=== PATIENT | female | born 1990 | race Caucasian/White ===

== ENCOUNTER 2018-07-25 14:39 | Inpatient (IN) | payer OTHER ==
[2018-07-25] MEDS ORDERED: OXYTOCIN 30 UNITS IN 0.9% NaCl 500ML IV BAG (J2590) As Ordered (14:44)
[2018-07-25] MEDS ORDERED: ACETAMINOPHEN 500 MG TAB PO (15:15)
[2018-07-25] MEDS ORDERED: DOCUSATE SODIUM 100 MG CAP PO (15:15)
[2018-07-25] MEDS ORDERED: MEASLES,MUMPS,RUBELLA VACCINE INJ (MMR-II) (90707) SC (15:15)
[2018-07-25] MEDS ORDERED: RHOGAM 300 MCG (1500 IU) INJ (J2790) IM (15:15)
[2018-07-25] MEDS ORDERED: OXYTOCIN INJ 10 UNITS/ML VIAL (J2590) As Ordered (15:59)
[2018-07-25] MEDS ORDERED: LIDOCAINE 1% MDV 20ML VIAL As Ordered (16:00)
[2018-07-25] MEDS: OXYTOCIN INJ 10 UNITS/ML VIAL (J2590) IM (16:23)
[2018-07-25] MEDS: LIDOCAINE 1% MDV 20ML VIAL SC (16:23)
[2018-07-25] MEDS: PRENATAL VITAMINS CHEWABLE TABLET PO (18:00)
[2018-07-25] MEDS: IBUPROFEN 800 MG TAB PO (18:01)
[2018-07-25] MEDS: DIBUCAINE 1% OINTMENT 30GM TOP (18:02)
[2018-07-26] MEDS: IBUPROFEN 800 MG TAB PO (04:07)
[2018-07-26] MEDS: PRENATAL VITAMINS CHEWABLE TABLET PO (09:21)
== END 2018-07-26 17:50 | disposition home or self-care (01) | DRG 776 ==
LOC: M LDI 14:39 → M OBS 17:55
PROC: 0HQ9XZZ Repair Perineum Skin, External Approach (ICD-10-PCS; principal; 2018-07-25)
DX: Z39.0 Encounter for care and examination of mother immediately after delivery (principal); O70.0 First degree perineal laceration during delivery; Z3A.40 40 weeks gestation of pregnancy

== ENCOUNTER 2020-03-31 14:27 | Inpatient (IN) | payer OTHER ==
[~2020-03-31] VITALS: Ht 165.1 cm; Wt 76.9 kg
[2020-03-31] VITALS (19 sets, daily range): BP systolic 97–134; BP diastolic 51–80
[~2020-03-31 14:27] MED LIST: IBUP-1114 PO; MAPA500T2 PO; NUPE1OIN2 TOP; PRENTAB9 PO
[2020-03-31] MEDS ORDERED: LACTATED RINGER'S 1000 ML IV STA (14:57)
[2020-03-31] MEDS ORDERED: OXYTOCIN DRIP 30 UNITS in IV 1 EA IV SCH (15:00)
[2020-03-31 15:28] LABS: BASO % 0.3 % (0.0-1.0); EOS % 0.3 % (0.0-3.0); HEMOGLOBIN 13.3 g/dl (12.0-15.5); LYMPH % 20.2 % (24.0-44.0); MEAN CORPUSCULAR HEMOGLOBIN 33.9 pg (27.0-33.0); MEAN CORPUSCULAR HGB CONC 35.9 g/dl (32.0-36.5); MEAN CORPUSCULAR VOLUME 94.4 fl (80.0-96.0); MONO # 0.7 10^3/uL (0.0-0.8); MONO % 7.4 % (0.0-5.0); NEUTROPHILS % 70.9 % (36.0-66.0); PLATELET COUNT, AUTOMATED 192 10^3/uL (150-450); RED BLOOD COUNT 3.92 10^6/uL (4.00-5.40); WHITE BLOOD COUNT 9.9 10^3/uL (4.0-10.0)
[2020-03-31] MEDS: LR 1,000 ML IV SCH (16:29)
[2020-04-01] VITALS (16 sets, daily range): BP systolic 108–145; BP diastolic 54–93
[2020-04-01] MEDS ORDERED: FENTANYL 2MCG/ML ROPIVACAINE 0.2% IN 0.9% NACL 100ML IVBAG As Ordered ONE (00:18)
--- NOTE | 2020-04-01 00:57 | IPNPDOC ---
Text Note Date of Service The patient was seen on 04/01/20. NOTE Patient is a 29 y/o G 4P021 at 41wks admitted last night for IOL for pending postdates. induction with pitocin with cervix at 4cm. just received epidural pit: 12mU/min vitals: normal NAD fht: 130/mod anna/pos accel/ no decel toco: ctx q 2-3mins a/p patient in latent labor. will assess bout 1-2 hr after epidural and AROM as indicated. Le, DO VS,Fishbone, I+O VS, Fishbone, I+O Laboratory Tests 03/31/20 15:15 Vital Signs Date Time Temp Pulse Resp B/P (MAP) Pulse Ox O2 Delivery O2 Flow Rate FiO2 03/31/20 23:44 80 117/68 (84) 03/31/20 19:16 96.7 18 I&O- Last 24 Hours up to 6 AM 04/01/20 05:59 Intake Total 776 ml Balance 776 ml LORENE WRIGHT DO Apr 01, 2020 00:57
[2020-04-01] MEDS ORDERED: LACTATED RINGER'S 1000 ML IV PRN (01:00)
[2020-04-01] MEDS ORDERED: REFRIGERATOR IV KEYS XX PRN (01:00)
[2020-04-01] MEDS ORDERED: NALOXONE INJ 0.4MG/1ML VIAL (J2310 PER 1MG) IV PRN (01:00)
[2020-04-01] MEDS ORDERED: diphenhydrAMINE 50MG/ML VIAL (J1200) IV PRN (01:00)
[2020-04-01] MEDS ORDERED: EPIDURAL COMMENT XX SCH (01:00)
[2020-04-01] MEDS ORDERED: ePHEDrine SULFATE 25 MG/5 ML(5MG/ML) SYRINGE IV PRN (01:00)
[2020-04-01] MEDS ORDERED: ONDANSETRON 4MG/2ML VIAL IV PRN (01:00)
[2020-04-01] MEDS ORDERED: EPIDURAL/PCA KEYS XX PRN (01:00)
[2020-04-01] MEDS ORDERED: FENTANYL/ROPIVACAINE/NACL BAG 100 ML EPIDURAL SCH (01:00)
[2020-04-01] MEDS: LR 1,000 ML IV SCH (02:15)
[2020-04-01] MEDS ORDERED: OXYTOCIN DRIP 30 UNITS in IV 1 EA IV SCH (03:25)
[2020-04-01] MEDS ORDERED: ACETAMINOPHEN TAB 650MG DOSE (2X325MG) PO PRN (03:30)
[2020-04-01] MEDS ORDERED: RHOGAM 300 MCG (1500 IU) INJ (J2790) IM SCH (03:30)
[2020-04-01] MEDS ORDERED: MEASLES,MUMPS,RUBELLA VACCINE INJ (MMR-II) (90707) SC SCH (03:30)
[2020-04-01] MEDS ORDERED: DIBUCAINE 1% OINTMENT 30GM TOP PRN (03:30)
--- NOTE | 2020-04-01 03:37 | DNPDOC ---
[facility] Delivery Note Delivery Note DATE OF DELIVERY: 04/01/2020 PREDELIVERY DIAGNOSIS: 41+0/7 weeks' gestation POST DELIVERY DIAGNOSIS: Delivered. vaginal cyst PROCEDURE: Spontaneous vaginal delivery vaginal cystectomy PIT SHOVELER: Dr. Michael Cano DO ANESTHESIA: epidural ESTIMATED BLOOD LOSS: 250 mL. FINDINGS: male , Score 9/9. DELIVERY SUMMARY: With good maternal effort, baby delivered OA. Both shoulders delivered. Mom reached down to catch baby and brought to abdomen. Cord allow to stop pulsating. Cord clamped x 2 and cut by patient. Pitocin bolus started. Cord blood collected per routine. Placenta delivered spontaneously. Fundus massaged firm. Inspection revealed first degree midline laceration. small (1cm) cyst on right side of laceration. Patient verbally consented for cystectomy. Cyst removed sharply and sent to path. Laceration repaired interrupted with 2-0 vicryl. Mother and baby bonding when I left the room. DO ADRIANA Cano LUAT N. DO Apr 01, 2020 03:37
[2020-04-01] MEDS: IBUPROFEN 800 MG TAB PO PRN ×3 (04:23→21:45)
[2020-04-01] MEDS: FAMOTIDINE 20 MG TAB PO SCH ×2 (04:23→21:00)
[2020-04-01] MEDS: DOCUSATE SODIUM 100 MG CAP PO SCH ×2 (08:31→21:44)
[2020-04-01] MEDS: PRENATAL VITAMINS CHEWABLE TABLET PO SCH (08:31)
[2020-04-02 06:14] VITALS: BP 109/71
[2020-04-02] MEDS ORDERED: DIBU10OI TOP (06:18)
[2020-04-02] MEDS ORDERED: IBUP80TA PO (06:18)
[2020-04-02] MEDS ORDERED: DOCU100C16 PO (06:18)
[2020-04-02] MEDS: IBUPROFEN 800 MG TAB PO PRN (09:00)
[2020-04-02] MEDS: PRENATAL VITAMINS CHEWABLE TABLET PO SCH (09:00)
[2020-04-02] MEDS: DOCUSATE SODIUM 100 MG CAP PO SCH (09:00)
[2020-04-02] MEDS: FAMOTIDINE 20 MG TAB PO SCH (09:17)
--- NOTE | 2020-04-03 21:32 | DSES ---
DATE OF ADMISSION: 03/31/2020 DATE OF DISCHARGE: 04/02/2020 This is a 29-year-old 4, now para 2, admitted for induction of labor at 40 and 6 weeks of gestation. Had a spontaneous vaginal delivery of a male infant, 8 pounds 12 ounces, 3960 grams, scores of 9 and 9 at one and five minutes, respectively. Admitting hemoglobin was 13.3, hematocrit 37.0, and platelets were 192. On discharge, her blood pressure was 120/67, respirations 18, pulse 84, temperature 99.0. We discussed phlebitis, cystitis, mastitis, metritis, and cellulitis, diet, exercise pain management, and perineal, breast and wound care. Rest of the examination unremarkable. Normocephalic, atraumatic. Neck: Full range of motion. Pupils equal and reactive to light. Distal pulses are symmetric. No evidence of deep vein thrombosis (DVT), pulmonary embolism (PE), or superficial phlebitis. Chest is clear bilaterally to bases. No wheezes or rhonchi. No costovertebral angle (CVA) tenderness. Abdomen soft. Uterus 2 below. Lochia is moderate. Perineum is intact. Minimal discomfort from the removal of the vaginal cyst. She has no rashes, lesions, or pruritus. No arthralgia or myalgia. No complaint of joint pain. No complaint of cough, wheeze, shortness of breath, or dyspnea on exertion. No nausea, vomiting, diarrhea, or constipation. Breast-feeding is going well. She is planning on picking up medications at [place]. A 6-week checkup. All questions were answered. A 20-minute discussion. We reviewed again the postoperative care of the circumcision. The patient is discharged improved.
== END 2020-04-02 12:30 | disposition home or self-care (01) | DRG 768 ==
LOC: M LDI 14:27 → M OBS 04-01 05:59
PROVIDERS: ADMIT Advanced Practice Midwife; ATTEND Advanced Practice Midwife
PROC: 3E033VJ Introduction of Other Hormone into Peripheral Vein, Percutaneous Approach (ICD-10-PCS; 2020-03-31)
PROC: 10E0XZZ Delivery of Products of Conception, External Approach (ICD-10-PCS; principal; 2020-04-01)
PROC: 0UBG7ZX Excision of Vagina, Via Natural or Artificial Opening, Diagnostic (ICD-10-PCS; 2020-04-01)
PROC: 0HQ9XZZ Repair Perineum Skin, External Approach (ICD-10-PCS; 2020-04-01)
DX: O48.0 Post-term pregnancy (principal); Z37.0 Single live birth; Z3A.40 40 weeks gestation of pregnancy; O70.0 First degree perineal laceration during delivery; L72.0 Epidermal cyst; O99.72 Diseases of the skin and subcutaneous tissue complicating childbirth